=== PATIENT | female | born 1995 | race Caucasian/White ===

== ENCOUNTER 2016-09-06 04:21 | Emergency (ER) | payer OTHER ==
[2016-09-06 04:49] LABS: BILIRUBIN,URINE NEGATIVE (NEGATIVE)
[2016-09-06 04:58] LABS: HCG UR QUAL NEGATIVE; UA w/ MICROSCOPIC CHARGE YES; UR CULTURE IF IND NOT INDICATED
--- NOTE | 2016-09-06 05:18 | ED Physician Documentation ---
PD HPI ABD PAIN - Stated complaint Stated Complaint: FEMALE - Chief complaint Chief Complaint: General - History obtained from History obtained from: Patient - History of Present Illness Timing - onset: How many days ago (2) Timing - duration: Days Timing - details: Still present, Constant, Waxing and waning Pain level now: 6 Quality: Cramping Location: Suprapubic (suprapubic and bilateral pelvis) Radiation: Other (no radiation of pain) Improved by: Other (no ameliorating factors) Worsened by: Other (no exacerbating factors) Associated symptoms: No: Fever, Nausea, Vomiting Similar symptoms before: Has not had sx before Recently seen: Not recently seen - Additional information Additional information: patient complains of two days of cramping across anterior pelvis, coinciding with the onset of her period. she says it feels like her menstrual cramping but more intense then she's had previously. Patient took Pamperin without relief. Review of Systems Constitutional: denies: Fever : reports: Vaginal bleeding, Control (ICU). denies: Dysuria, Frequency , Irregular menses, Now EGA PD PAST MEDICAL HISTORY - Past Medical History Past Medical History: No - Past Surgical History Past Surgical History: No - Present Medications Home Medications: Ambulatory Orders Medication Instructions Recorded Confirmed No Known Home Medications [No 09/06/16 09/06/16 Known Home Medications] - Allergies Allergies/Adverse Reactions: Allergies Allergy/AdvReac Type Severity Reaction Status Date / Time No Known Drug Allergies Allergy Verified 09/06/16 04:28 PD ED PE NORMAL - Vitals Vital signs reviewed: Yes - General General: Alert and oriented X 3, No acute distress, Well developed/nourished - Abdomen Abdomen: Normal bowel sounds, Soft, Non distended, Other (mild tenderness across anterior pelvis, greatest in suprapubic region) Results - Vitals Vitals: Vital Signs - 24 hr 09/06/16 09/06/16 04:25 06:35 Temperature 36.4 C L Heart Rate 74 69 Respiratory 15 18 Rate Blood Pressure 115/84 H 112/74 O2 Saturation 99 99 Oxygen O2 Source Room air - Labs Labs: Laboratory Tests 09/06/16 09/06/16 04:40 05:44 WBC 6.7 RBC 4.42 Hgb 12.9 Hct 38.9 MCV 88.0 MCH 29.1 MCHC 33.1 RDW 13.0 Plt Count 221 MPV 10.2 Neut # 3.1 Lymph # 2.6 [place] # 0.8 Eos # 0.1 Baso # 0.0 Absolute Nucleated RBC 0.01 Nucleated RBCs 0.1 Urine Color LT. YELLOW Urine Clarity CLEAR Urine pH 6.0 Ur Specific [place] 1.020 Urine Protein NEGATIVE Urine Glucose (UA) NEGATIVE Urine Ketones NEGATIVE Urine Occult Blood LARGE H Urine Nitrite NEGATIVE Urine Bilirubin NEGATIVE Urine Urobilinogen 0.2 (NORMAL) Ur Leukocyte Esterase NEGATIVE Urine RBC 0-5 Urine WBC 4-5 Ur Squamous Epith Cells FEW Squamous Urine Bacteria None Seen Ur Microscopic Review INDICATED Urine Culture Comments NOT INDICATED Urine HCG, Qual NEGATIVE - Rads (name of study) pelvic/TV US Radiology: Prelim report reviewed, See rad report PD MEDICAL DECISION MAKING - ED course Complexity details: reviewed results, re-evaluated patient, considered differential, d/w patient Departure - Departure Disposition: 01 Home, Self Care Clinical Impression: Pelvic pain Condition: Good Instructions: ED Pelvic Pain [facility] Discharge Date/Time: 09/06/16 08:06
[2016-09-06] MEDS ORDERED: IBUPROFEN 600 MG TABLET PO ONE (05:46)
[2016-09-06] MEDS ORDERED: IBUPROFEN 600 MG TABLET PO STA (05:49)
[2016-09-06 05:55] LABS: BASOPHILS % (AUTO) 0.6 %; EOSINOPHILS # (AUTO) 0.1 10^3/uL (0.0-0.7); EOSINOPHILS % (AUTO) 2.1 %; HCT - HEMATOCRIT 38.9 % (37.0-47.0); HGB - HEMOGLOBIN 12.9 g/dL (12.0-16.0); LYMPHOCYTES # (AUTO) 2.6 10^3/uL (1.5-3.5); LYMPHOCYTES % (AUTO) 39.3 %; MEAN CORPUSCULAR HEMOGLOBIN 29.1 pg (27.0-31.0); MEAN CORPUSCULAR HGB CONC 33.1 g/dL (32.0-36.0); MEAN PLATELET VOLUME 10.2 fL (7.9-10.8); MONOCYTES # (AUTO) 0.8 10^3/uL (0.0-1.0); MONOCYTES % (AUTO) 11.3 %; NEUTROPHILS # (AUTO) 3.1 10^3/uL (1.5-6.6); NEUTROPHILS % (AUTO) 46.7 %; NUCLEATED RED BLOOD CELLS AUTO 0.1 /100WBC; RED BLOOD COUNT 4.42 10^6/uL (4.20-5.40); UNCORRECTED WHITE BLOOD COUNT 6.7 x10^3/uL; WHITE BLOOD COUNT 6.7 x10^3/uL (4.8-10.8)
[2016-09-06 06:36] VITALS: BP 112/74
--- NOTE | 2016-09-06 07:44 | Ultrasound Preliminary Report ---
Exam: US Pel Non OB w/TV + Dop IMPRESSION: Normal sonographic appearance of the pelvis. [facility] SITE ID: [id number]
--- NOTE | 2016-09-06 07:46 | Ultrasound Report ---
EXAM: PELVIC ULTRASOUND EXAM DATE: 09/06/2016 07:21 AM. CLINICAL HISTORY: Pelvic pain and tenderness. COMPARISON: None. TECHNIQUE: Realtime transabdominal pelvic scan performed to identify the uterus and adnexa and as an overview of other pelvic structures, followed by transvaginal scan to provide greater detail of the u terus and adnexa, with static image documentation. FINDINGS: Uterus: Uterus is normal in position and normal in configuration. Uterus measures 7.2 x 5.0 x 3.3 cm . No evident uterine masses. Endometrium: Satisfactory appearance of the IUD. Endometrium measures 2.1 mm. No suspicious thickenin g or vascularity. Cervix: No suspicious lesion. Right Ovary: Normal in appearance measuring 3.4 x 2.1 x 2.1 cm. Normal blood flow. Left Ovary: Normal in appearance measuring 3.0 x 1.8 x 1.2 cm. Normal blood flow. Fluid: No signficant free fluid. Other: No other significant findings. IMPRESSION: Normal sonographic appearance of the pelvis. [facility] Referring Provider Line: [phone] SITE ID: [id number]
== END 2016-09-06 08:06 | disposition home or self-care (01) ==
LOC: ED 04:21
DX: R10.2 Pelvic and perineal pain (principal)
CPT/HCPCS: 36415; 76830; 76856; 81001; 81025; 85025; 93975; 99283; A9270; 81003; 87086

== ENCOUNTER 2017-11-11 17:57 | Emergency (ER) | payer OTHER ==
--- NOTE | 2017-11-11 19:23 | ED Physician Documentation ---
PD HPI SKIN - Stated complaint Stated Complaint: BUMP IN L EAR - Chief complaint Chief Complaint: Wound - History obtained from History obtained from: Patient - History of Present Illness Timing - onset: Other (5 days a little painful abscess inside of the left ear. She has not had these before and she has no health issues.) Review of Systems Constitutional: reports: Reviewed and negative Ears: denies: Loss of hearing, Ear pain, Drainage/discharge Nose: reports: Reviewed and negative PD PAST MEDICAL HISTORY - Past Surgical History Past Surgical History: Yes - Present Medications Home Medications: Ambulatory Orders Medication Instructions Recorded Confirmed Cephalexin [Keflex] 500 mg PO QID #40 capsule 11/11/17 - Allergies Allergies/Adverse Reactions: Allergies Allergy/AdvReac Type Severity Reaction Status Date / Time No Known Drug Allergies Allergy Verified 11/11/17 18:05 - Social History Does the pt smoke?: No Smoking Status: Never smoker Does the pt drink ETOH?: No Does the pt have substance abuse?: No - Immunizations Immunizations are current?: Yes PD ED PE NORMAL - Vitals Vital signs reviewed: Yes - General General: Alert and oriented X 3, No acute distress - HEENT HEENT: Other - Neck Neck: Supple, no meningeal sign, No bony TTP (There is a less than 1 cm pointed abscess just posterior to the ear canal in the left ear.) - Neuro Neuro: Alert and oriented X 3, Normal speech Results - Vitals Vitals: Vital Signs - 24 hr 11/11/17 18:04 Temperature 36.7 C Heart Rate 74 Respiratory 16 Rate Blood Pressure 123/81 H O2 Saturation 100 Oxygen O2 Source Room air Procedures - Abscess I&D (location) L ear Preparation: Betadine, Lidocaine 1% (auricular block) Incision: Incised with scalpel, Purulent drainage (with sebaceous material), Loculations broken, Culture obtained Other: Pt tolerated well, Antibiotic prescribed PD MEDICAL DECISION MAKING - Sepsis Event Vital Signs: Vital Signs - 24 hr 11/11/17 18:04 Temperature 36.7 C Heart Rate 74 Respiratory 16 Rate Blood Pressure 123/81 H O2 Saturation 100 Oxygen O2 Source Room air Departure - Departure Disposition: 01 Home, Self Care Clinical Impression: Sebaceous cyst of ear Condition: Good Record reviewed to determine appropriate education?: Yes Instructions: ED Abscess IandD Prescriptions: Cephalexin [Keflex] 500 mg PO QID #40 capsule Comments: We are performing a wound culture, the results should be done in 48-72 hours. If antibiotic change is necessary we will call you. Return if worse in the meantime, especially if you develop increased pain, fevers, cannot keep down the medication. Otherwise follow-up with your physician in approximately 2-3 days.
[2017-11-11] MEDS ORDERED: cephALEXin 250 MG CAPSULE PO STA (19:27)
[2017-11-11 19:41] VITALS: BP 119/72
== END 2017-11-11 19:39 | disposition home or self-care (01) ==
LOC: ED 17:57
DX: L72.3 Sebaceous cyst (principal)
CPT/HCPCS: 10060; 87070; 87181; 87205; 99283; A9270

== ENCOUNTER 2018-11-17 14:38 | Emergency (ER) | payer OTHER ==
--- NOTE | 2018-11-17 15:00 | ED Physician Documentation ---
PD HPI FEMALE - Stated complaint Stated Complaint: FEMALE - Chief complaint Chief Complaint: UTI - History obtained from History obtained from: Patient - History of Present Illness Timing - onset: How many days ago (5-6) Timing - duration: Days (5-6) Timing - details: Gradual onset, Still present (worse the past 3 days) Associated symptoms: Vaginal pain (around labia), Dysuria. No: Vaginal discharge, Genital sore/lesion Contributing factors: IUD, Sexually active (but her is away the past 2 months). No: , Exposed to STD Review of Systems Constitutional: denies: Fever, Chills, Myalgias Throat: denies: Sore throat GI: denies: Abdominal Pain : reports: Dysuria, Frequency. denies: Discharge Skin: denies: Rash, Lesions Musculoskeletal: reports: Back pain PD PAST MEDICAL HISTORY - Past Medical History Cardiovascular: None Respiratory: None Neuro: None Endocrine/Autoimmune: None - Past Surgical History Past Surgical History: Yes - Present Medications Home Medications: Ambulatory Orders Medication Instructions Recorded Confirmed Cephalexin [Keflex] 500 mg PO QID #40 capsule 11/11/17 Clotrimazole/Betamethasone Dip 15 gm TP BID #15 cream..g. 11/17/18 [Lotrisone Cream] Fluconazole [Diflucan] 150 mg PO ONCE #2 tablet 11/17/18 Metronidazole [Flagyl] 500 mg PO BID #14 tablet 11/17/18 Naproxen 375 mg PO BID #20 tablet 11/17/18 - Allergies Allergies/Adverse Reactions: Allergies Allergy/AdvReac Type Severity Reaction Status Date / Time No Known Drug Allergies Allergy Verified 11/11/17 18:05 - Social History Does the pt smoke?: No Smoking Status: Never smoker Does the pt drink ETOH?: No Does the pt have substance abuse?: No - Immunizations Immunizations are current?: Yes PD ED PE NORMAL - Vitals Vital signs reviewed: Yes - General General: Alert and oriented X 3, No acute distress, Well developed/nourished - HEENT HEENT: Pharynx benign - Neck Neck: Supple, no meningeal sign, No adenopathy - Cardiac Cardiac: RRR, No murmur - Respiratory Respiratory: Clear bilaterally - Abdomen Abdomen: Soft, Non tender - Female Female : Screen Printing Paster present, Other (redness without focal swelling in crease of labia and on inner labial mcintosh. The vault has clear to shaikh colored, somewhat mucousy discharge. IUD strings noted. Some malodor c/w BV.) - Back Back: No CVA TTP - Derm Derm: Normal color, Warm and dry Results - Vitals Vitals: Vital Signs - 24 hr 11/17/18 11/17/18 11/17/18 14:43 15:11 16:39 Temperature 37.2 C 37.3 C Heart Rate 86 86 67 Respiratory 16 16 18 Rate Blood Pressure 131/80 H 131/80 H 118/71 O2 Saturation 100 100 98 Oxygen O2 Source Room air - Labs Labs: Microbiology 11/17/18 16:06 Wet Prep - Final Vaginal Laboratory Tests 11/17/18 11/17/18 11/17/18 16:06 16:06 16:06 Urine Color DARK YELLOW Urine Clarity HAZY Urine pH 6.0 Ur Specific [place] 1.020 1.020 Urine Protein TRACE Urine Glucose (UA) NEGATIVE Urine Ketones 15 H Urine Occult Blood TRACE-INTA Urine Nitrite NEGATIVE Urine Bilirubin SMALL H Urine Urobilinogen 0.2 (NORMAL) Ur Leukocyte Esterase TRACE H Urine RBC 0-5 Urine WBC 4-5 Ur Squamous Epith Cells MANY Squamous H Urine Bacteria Many H Urine Mucus Few Strands Ur Microscopic Review INDICATED Urine Culture Comments NOT INDICATED Urine HCG, Qual NEGATIVE Chlam trachomat DNA PCR NEGATIVE N.gonorrhoeae DNA (PCR) NEGATIVE T. vaginalis (PCR) NEGATIVE Departure - Departure Disposition: 01 Home, Self Care Clinical Impression: Vaginitis Qualifiers: Chronicity: acute Qualified Code(s): N76.0 - Acute vaginitis Condition: Stable Record reviewed to determine appropriate education?: Yes Instructions: ED Vaginosis Bacterial, ED Vaginal Infec Fungal Xin Follow-Up: Feliciano Arredondo ARNP [Primary Care Provider] - Prescriptions: Clotrimazole/Betamethasone Dip [Lotrisone Cream] 15 gm TP BID #15 cream..g. Fluconazole [Diflucan] 150 mg PO ONCE #2 tablet Metronidazole [Flagyl] 500 mg PO BID #14 tablet Naproxen 375 mg PO BID #20 tablet Comments: Your exam does look likely to be a vaginitis with some mucus and redness in the vaginal vault and at the labia. This may be back serial or may have some element of yeast. Diflucan oral antifungal tablet. Metronidazole oral antibiotic as directed. Naproxen anti-inflammatory. He can also use the Chlortrimazole cream at the labial folds and inner labia where its irritated twice daily for the next several days or so. Recheck if not improving well over the next few days. We did do a culture to look for other types of bacterial infections and will call you if it is positive in about 3 days. Discharge Date/Time: 11/17/18 16:40
[2018-11-17 16:21] LABS: GLUCOSE, URINE (UA) NEGATIVE (NEGATIVE); KETONES,URINE (UA) 15 mg/dL (NEGATIVE); LEUKOCYTE ESTERASE, URINE TRACE (NEGATIVE); NITRITE,URINE NEGATIVE (NEGATIVE); OCCULT BLOOD,URINE TRACE-INTA (NEGATIVE); PROTEIN,URINE TRACE mg/dL (NEGATIVE); UROBILINOGEN,URINE 0.2 (NORMAL) E.U./dL (NORMAL)
[2018-11-17 16:34] LABS: BILIRUBIN,URINE SMALL (NEGATIVE); ICTOTEST,URINE POSITIVE
[2018-11-17 16:35] LABS: CLARITY,URINE HAZY (CLEAR); HCG UR QUAL NEGATIVE
[2018-11-17 16:36] LABS: BACTERIA,URINE Many /HPF (None Seen); MUCUS,URINE Few Strands; RBC,URINE 0-5 /HPF (0-5); SQUAMOUS EPITHELIAL CELL,UR MANY Squamous (<= Few)
[2018-11-17 16:41] VITALS: BP 118/71
[2018-11-17 22:30] LABS: TRICHOMONAS VAGINALIS DNA NEGATIVE (NEGATIVE)
== END 2018-11-17 16:40 | disposition home or self-care (01) ==
LOC: ED 14:38
DX: N76.0 Acute vaginitis (principal); Z97.5 Presence of (intrauterine) contraceptive device
CPT/HCPCS: 81001; 81003; 81025; 87086; 87210; 87491; 87591; 87661; 99283; 99284

== ENCOUNTER 2018-12-22 19:56 | Emergency (ER) | payer OTHER ==
[2018-12-22 20:26] LABS: BILIRUBIN,URINE NEGATIVE (NEGATIVE); GLUCOSE, URINE (UA) NEGATIVE (NEGATIVE); KETONES,URINE (UA) TRACE mg/dL (NEGATIVE); LEUKOCYTE ESTERASE, URINE NEGATIVE (NEGATIVE); NITRITE,URINE NEGATIVE (NEGATIVE); OCCULT BLOOD,URINE NEGATIVE (NEGATIVE); PH,URINE 6.5 PH (5.0-7.5); PROTEIN,URINE NEGATIVE (NEGATIVE); UROBILINOGEN,URINE 0.2 (NORMAL) E.U./dL (NORMAL)
[2018-12-22 20:31] LABS: CLARITY,URINE CLEAR (CLEAR); HCG UR QUAL NEGATIVE
--- NOTE | 2018-12-22 21:05 | ED Physician Documentation ---
PD HPI ABD PAIN - Stated complaint Stated Complaint: FEMALE - Chief complaint Chief Complaint: Abd Pain - History obtained from History obtained from: Patient - History of Present Illness Timing - onset: Other (23-year-old woman with an almost IUD in place presents with pelvic cramping and discharge this been going on on and off for 2 months. The first physician she saw said she had normal exam and place her on Aquaphor. Subsequent to that she was tested and positive for BV and negative for STDs. She got better briefly on Flagyl but her symptoms recurred. Now she is on topical antibiotics without relief. She has slight vaginal bleeding. She has not been sexually active in about 4 months.) Review of Systems Constitutional: denies: Fever, Chills Respiratory: denies: Dyspnea, Cough GI: reports: Abdominal Pain. 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 11/17/18 [Lotrisone Cream] Fluconazole [Diflucan] 150 mg PO ONCE #2 tablet 11/17/18 Metronidazole [Flagyl] 500 mg PO BID #14 tablet 11/17/18 Naproxen 375 mg PO BID #20 tablet 11/17/18 - Allergies Allergies/Adverse Reactions: Allergies Allergy/AdvReac Type Severity Reaction Status Date / Time No Known Drug Allergies Allergy Verified 12/22/18 20:04 - Social History Does the pt smoke?: No Smoking Status: Never smoker Does the pt drink ETOH?: No Does the pt have substance abuse?: No - Immunizations Immunizations are current?: Yes - POLST Patient has POLST: No PD ED PE NORMAL - Vitals Vital signs reviewed: Yes - General General: Alert and oriented X 3, No acute distress - Abdomen Abdomen: Soft, Non tender - Female Female : Flattening Press Operator present (Winnie PAIGE), Other (Fair amount of mucus on speculum exam, no tenderness. Her IUD was removed per her request.) - Neuro Neuro: Alert and oriented X 3, Normal speech - Psych Psych: Normal mood, Normal affect Results - Vitals Vitals: Vital Signs - 24 hr 12/22/18 20:01 Temperature 36.7 C Heart Rate 77 Respiratory 19 Rate Blood Pressure 133/87 H O2 Saturation 100 Oxygen O2 Source Room air - Labs Labs: Microbiology 12/22/18 21:40 Wet Prep - Final Genital - Vaginal Laboratory Tests 12/22/18 20:17 Urine Color YELLOW Urine Clarity CLEAR Urine pH 6.5 Ur Specific [place] 1.020 Urine Protein NEGATIVE Urine Glucose (UA) NEGATIVE Urine Ketones TRACE Urine Occult Blood NEGATIVE Urine Nitrite NEGATIVE Urine Bilirubin NEGATIVE Urine Urobilinogen 0.2 (NORMAL) Ur Leukocyte Esterase NEGATIVE Ur Microscopic Review NOT INDICATED Urine Culture Comments NOT INDICATED Urine HCG, Qual NEGATIVE PD MEDICAL DECISION MAKING - ED course ED course: 23-year-old woman with ongoing vaginal complaints. She felt like it was her IUD and per her request it was removed. Now her swabs are negative, and subsequent to the removal of her IUD she was already feeling better. Departure - Departure Disposition: 01 Home, Self Care Clinical Impression: Pelvic pain Vaginitis Qualifiers: Chronicity: acute Qualified Code(s): N76.0 - Acute vaginitis Condition: Good Record reviewed to determine appropriate education?: Yes Instructions: ED Pelvic Pain [facility] Comments: Follow-up with your primary care physician if not improved, return for new or worsening symptoms. You will need alternative form of control obviously if you are sexually active again.
[2018-12-22 22:21] VITALS: BP 105/73
== END 2018-12-22 22:21 | disposition home or self-care (01) ==
LOC: ED 19:56
DX: R10.2 Pelvic and perineal pain (principal); N76.0 Acute vaginitis
CPT/HCPCS: 81001; 81003; 81025; 87086; 87210; 99283; 99284

== ENCOUNTER 2018-12-25 20:33 | Emergency (ER) | payer OTHER ==
[2018-12-25] MEDS ORDERED: HYDROmorphone 1 MG/ML CARPUJECT IM STA (20:55)
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
[2018-12-25] MEDS ORDERED: HYDROcod/ACET 5/325 Prepack 4 PO STA (21:41)
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
[2018-12-25] MEDS ORDERED: TETANUS/DIPHTHERIA/PERTUSSIS 0.5 ML SYRINGE IM ONE (21:51)
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
[2018-12-25 22:20] VITALS: BP 126/86
== END 2018-12-25 22:22 | disposition home or self-care (01) ==
LOC: ED 20:33
DX: S43.102A Unspecified dislocation of left acromioclavicular joint, initial encounter (principal); S30.810A Abrasion of lower back and pelvis, initial encounter; V18.0XXA Pedal cycle driver injured in noncollision transport accident in nontraffic accident, initial encounter; Y93.55 Activity, bike riding; Z23 Encounter for immunization
CPT/HCPCS: 72040; 73030; 90471; 90715; 96372; 99284; J1170

== ENCOUNTER 2019-05-17 09:21 | Emergency (ER) | payer OTHER ==
--- NOTE | 2019-05-17 11:41 | ED Physician Documentation ---
PD HPI CHEST PAIN - Stated complaint Stated Complaint: LT SIDE PX - Chief complaint Chief Complaint: Resp - History obtained from History obtained from: Patient - History of Present Illness Timing - onset: Last night (Healthy 23-year-old woman who since last night has had a sharp pain in the left lower ribs laterally when she takes deep breath or coughs. She has a dry cough but had a small amount of hemoptysis this morning. She was short of breath last night. She is not on control. She has not had recent travel, leg pain or leg swelling. No history of DVT or PE.) Review of Systems Constitutional: denies: Fever, Chills, Fatigue Nose: denies: Rhinorrhea / runny nose, Congestion Throat: denies: Sore throat Cardiac: reports: Chest pain / pressure. denies: Palpitations Respiratory: reports: Dyspnea, Cough, Hemoptysis. denies: Wheezing PD PAST MEDICAL HISTORY - Past Medical History Past Medical History: No Cardiovascular: None Respiratory: None Neuro: None Endocrine/Autoimmune: None GI: None FLIGHT MANAGER: None : None HEENT: None Psych: None Musculoskeletal: None Derm: None - Past Surgical History Past Surgical History: Yes - Present Medications Home Medications: Ambulatory Orders Medication Instructions Recorded Confirmed Clotrimazole/Betamethasone Dip 15 gm TP BID #15 cream..g. 11/17/18 [Lotrisone Cream] Hydrocodone/Acetaminophen 1 - 2 each PO Q6H PRN #14 tablet 12/25/18 [Hydrocodon-Acetaminophen 5-325] Tretinoin/Emollient Base 12/25/18 [Tretinoin 0.05% Emollient Crm] - Allergies Allergies/Adverse Reactions: Allergies Allergy/AdvReac Type Severity Reaction Status Date / Time No Known Drug Allergies Allergy Verified 05/17/19 09:34 - Social History Does the pt smoke?: No Smoking Status: Never smoker Does the pt drink ETOH?: No Does the pt have substance abuse?: No - Immunizations Immunizations are current?: No Immunizations: TDAP current <10years - POLST Patient has POLST: No PD ED PE NORMAL - Vitals Vital signs reviewed: Yes - General General: Alert and oriented X 3, No acute distress - HEENT HEENT: PERRL, EOMI - Neck Neck: Supple, no meningeal sign, No bony TTP - Cardiac Cardiac: RRR, No murmur - Respiratory Respiratory: No respiratory distress, Clear bilaterally - Abdomen Abdomen: Non tender - Extremities Extremities: No edema, No calf tenderness / cord - Neuro Neuro: Alert and oriented X 3, Normal speech Results - Vitals Vitals: Vital Signs - 24 hr 05/17/19 05/17/19 09:31 11:45 Temperature 36.9 C 37.1 C Heart Rate 89 79 Respiratory 14 18 Rate Blood Pressure 160/91 H 121/81 H O2 Saturation 100 96 Oxygen O2 Source Room air - Labs Labs: Laboratory Tests 05/17/19 05/17/19 05/17/19 11:53 11:53 11:53 WBC 7.4 RBC 4.63 Hgb 13.3 Hct 41.5 MCV 89.6 MCH 28.7 MCHC 32.0 RDW 11.9 L Plt Count 278 MPV 11.2 H Neut # (Auto) 4.9 Lymph # (Auto) 1.9 Grayson # (Auto) 0.6 Eos # (Auto) 0.0 Baso # (Auto) 0.1 Absolute Nucleated RBC 0.00 Nucleated RBC % 0.0 D-Dimer 216.4 Sodium 138 Potassium 3.6 Chloride 102 Carbon Dioxide 25 Anion Gap 11.0 BUN 10 Creatinine 0.5 Estimated GFR (MDRD) 150 Glucose 100 Calcium 9.3 Total Bilirubin 0.7 AST 19 ALT 21 Alkaline Phosphatase 60 Total Protein 7.4 Albumin 4.1 Globulin 3.3 Albumin/Globulin Ratio 1.2 Lipase 23 - Rads (name of study) CXR Radiology: EMP read contemporaneously (neg) PD MEDICAL DECISION MAKING - ED course ED course: 23-year-old woman with left-sided chest pain worse with deep breathing and coughing. Examination is normal. PE is considered given the hemoptysis, and therefore a d-dimer was done. Otherwise it just seems like a chest wall strain from cough Departure - Departure Disposition: Home, Self Care Clinical Impression: Intercostal muscle pain, Cough Condition: Good Record reviewed to determine appropriate education?: Yes Instructions: ED Strain Chest Wall Comments: Return for new or worsening symptoms. Follow-up with your doctor in a week if not better for recheck. Ibuprofen as needed for pain.
[2019-05-17 11:45] VITALS: BP 121/81
--- NOTE | 2019-05-17 11:49 | XRAY Report ---
Reason: cough Procedure Date: 05/17/2019 Accession Number: [id number] / [id number] Procedure: XR - Chest 2 View X-Ray CPT Code: 30099 Final Report FULL RESULT: EXAM: CHEST RADIOGRAPHY EXAM DATE: 05/17/2019 11:06 AM. CLINICAL HISTORY: Cough. COMPARISON: SHOULDER 3 VIEW LT 12/25/2018 9:00 PM. TECHNIQUE: 2 views. FINDINGS: Lungs/Pleura: No focal opacities evident. No pleural effusion. No pneumothorax. Normal volumes. Mediastinum: Heart and mediastinal contours are unremarkable. Other: Left AC joint separation as on 12/25/2018. IMPRESSION: Clear lungs. No acute findings. RADIA
[2019-05-17 12:01] LABS: BASOPHILS # (AUTO) 0.1 10^3/uL (0.0-0.1); BASOPHILS % (AUTO) 0.7 %; EOSINOPHILS % (AUTO) 0.1 %; HGB - HEMOGLOBIN 13.3 g/dL (12.0-16.0); LYMPHOCYTES # (AUTO) 1.9 10^3/uL (1.5-3.5); LYMPHOCYTES % (AUTO) 25.3 %; MEAN CORPUSCULAR HEMOGLOBIN 28.7 pg (27.0-31.0); MEAN CORPUSCULAR VOLUME 89.6 fL (81.0-99.0); MEAN PLATELET VOLUME 11.2 fL (7.9-10.8); MONOCYTES # (AUTO) 0.6 10^3/uL (0.0-1.0); MONOCYTES % (AUTO) 7.5 %; NEUTROPHILS # (AUTO) 4.9 10^3/uL (1.5-6.6); NEUTROPHILS % (AUTO) 66.1 %; PLT - PLATELET COUNT 278 10^3/uL (130-450); RED BLOOD COUNT 4.63 10^6/uL (4.20-5.40); RED CELL DISTRIBUTION WIDTH 11.9 % (12.0-15.0); WHITE BLOOD COUNT 7.4 x10^3/uL (4.8-10.8)
[2019-05-17 12:11] LABS: ALBUMIN 4.1 g/dL (3.2-5.5); ALBUMIN/GLOBULIN RATIO 1.2 (1.0-2.2); BILIRUBIN,TOTAL 0.7 mg/dL (0.2-1.0); CALCIUM 9.3 mg/dL (8.5-10.3); CREATININE 0.5 mg/dL (0.4-1.0); TOTAL PROTEIN 7.4 g/dL (6.7-8.2)
== END 2019-05-17 12:21 | disposition home or self-care (01) ==
LOC: ED 09:21
DX: R07.89 Other chest pain (principal); M79.18 Myalgia, other site; R05 Cough
CPT/HCPCS: 36415; 71046; 80053; 83690; 85025; 85379; 99283; 99284

== ENCOUNTER 2019-06-25 10:35 | Emergency (ER) | payer OTHER ==
[2019-06-25 11:08] VITALS: BP 119/68
--- NOTE | 2019-06-25 12:09 | ED Physician Documentation ---
PD HPI UPPER EXT INJURY - Stated complaint Stated Complaint: L HAND LAC - Chief complaint Chief Complaint: Laceration - History obtained from History obtained from: Patient - History of Present Illness Location: Left, Hand Type of injury: Laceration (She is using an [employer] knife and accidentally cut onto the dorsum of the left hand proximal to the base of the thumb. It bled m ildly. There is no foreign body. It does open wider with range of motion of the thumb. No numbness or tingling.) Where injury occurred: Home Timing - onset: Today Timing - details: Abrupt onset Associated symptoms: No: Weakness, Numbness Review of Systems Neurologic: denies: Focal weakness, Numbness PD PAST MEDICAL HISTORY - Past Medical History Cardiovascular: None Respiratory: None Neuro: None Endocrine/Autoimmune: None GI: None DIRECTOR OF MANAGED CARE: None : None HEENT: None Psych: None Musculoskeletal: None Derm: None - Past Surgical History Past Surgical History: Yes - Present Medications Home Medications: Ambulatory Orders Medication Instructions Recorded Confirmed Clotrimazole/Betamethasone Dip 15 gm TP BID #15 cream..g. 11/17/18 [Lotrisone Cream] Hydrocodone/Acetaminophen 1 - 2 each PO Q6H PRN #14 tablet 12/25/18 [Hydrocodon-Acetaminophen 5-325] Tretinoin/Emollient Base 12/25/18 [Tretinoin 0.05% Emollient Crm] - Allergies Allergies/Adverse Reactions: Allergies Allergy/AdvReac Type Severity Reaction Status Date / Time No Known Drug Allergies Allergy Verified 06/25/19 11:08 - Social History Does the pt smoke?: No Smoking Status: Never smoker Does the pt drink ETOH?: No Does the pt have substance abuse?: No - Immunizations Immunizations are current?: No Immunizations: TDAP current <10years - POLST Patient has POLST: No PD ED PE NORMAL - Vitals Vital signs reviewed: Yes - General General: Alert and oriented X 3, No acute distress, Well developed/nourished - Derm Derm: Normal color, Warm and dry - Extremities Extremities: Other (Dorsum of the hand near the base of the left thumb proximal to that shows a 1-1/2 cm laceration which goes to the fatty layer without any foreign body or deep structures involved. It opens more widely with range of motion of the thumb. There are no foreign bodies noted.) Results - Vitals Vitals: Vital Signs - 24 hr 06/25/19 11:06 Temperature 36.1 C L Heart Rate 85 Respiratory 16 Rate Blood Pressure 119/68 O2 Saturation 100 Oxygen O2 Source Room air Procedures - Laceration (location) left hand Length in cm: 1.5 Wound type: Linear, Into subcut fat, Clean Neurovascular status: Sensory intact, Motor intact, Vascular intact Tendon involvement: Tendon intact Anesthesia: Lidocaine 1% with epi Wound Preparation: Wound explored, To the base. No: FB identified Skin layer closure: Nylon, Interrupted, Size #-0 - enter number (5), Sutures - enter # (4) Other: Patient tolerated well, Neurovascular intact, Tetanus UTD Complexity: Simple Departure - Departure Disposition: 01 Home, Self Care Clinical Impression: Laceration of left hand Qualifiers: Encounter type: initial encounter Foreign body presence: without foreign body Qualified Code(s): S61.412A - Laceration without foreign body of left hand, initial encounter Condition: Stable Record reviewed to determine appropriate education?: Yes Instructions: ED Laceration Hand Follow-Up: Meena Flores ARNP [Primary Care Provider] - Comments: It is okay to wash and shower. Clean off the wound twice a day with soap and water, or peroxide and water. Apply some antibiotic ointment to it to keep it moist. Also to watch for signs of infection such as purulence, redness or increasing pain. Return to your primary care or the ER at the specified time for suture removal. Suture removal 7 or 8 days.
== END 2019-06-25 12:48 | disposition home or self-care (01) ==
LOC: ED 10:35
DX: S61.412A Laceration without foreign body of left hand, initial encounter (principal); W26.0XXA Contact with knife, initial encounter
CPT/HCPCS: 12001; 99281; 99282

== ENCOUNTER 2020-10-07 08:00 | Outpatient (CLI) | payer OTHER ==
[2020-10-07 22:34] LABS: BACTERIAL VAGINOSIS DNA NEGATIVE (NEGATIVE); CANDIDA GLABRATA DNA NEGATIVE (NEGATIVE); CANDIDA GROUP DNA NEGATIVE (NEGATIVE); CANDIDA KRUSEI DNA NEGATIVE (NEGATIVE); TRICHOMONAS VAGINALIS DNA NEGATIVE (NEGATIVE)
[2020-10-07 23:23] LABS: CHLAMYDIA TRACHOMATIS DNA NEGATIVE (NEGATIVE); NEISSERIA GONORRHOEAE DNA NEGATIVE (NEGATIVE); TRICHOMONAS VAGINALIS DNA NEGATIVE (NEGATIVE)
== END 2020-10-07 23:59 | disposition home or self-care (01) ==
LOC: LAB.N 08:00
PROVIDERS: ATTEND Family Medicine
DX: N76.0 Acute vaginitis (principal); R30.0 Dysuria
CPT/HCPCS: 87086; 87181; 87491; 87591; 87661; 87801

== ENCOUNTER 2020-11-08 08:00 | Outpatient (CLI) | payer OTHER | END 2020-11-08 23:59 | disposition home or self-care (01) | LOC: LAB.N 08:00 | PROVIDERS: ATTEND Physician Assistant Medical | DX: J06.9 Acute upper respiratory infection, unspecified (principal); Z20.822 Contact with and (suspected) exposure to COVID-19 ==

== ENCOUNTER 2021-03-14 08:00 | Outpatient (CLI) | payer OTHER | END 2021-03-14 23:59 | LOC: LAB.N 08:00 | PROVIDERS: ATTEND Family Medicine | DX: N39.0 Urinary tract infection, site not specified (principal) | CPT/HCPCS: 87086; 87181 ==

== ENCOUNTER 2021-04-15 09:05 | Outpatient (CLI) | payer OTHER ==
[2021-04-16 00:45] LABS: CHLAMYDIA TRACHOMATIS DNA NEGATIVE (NEGATIVE); NEISSERIA GONORRHOEAE DNA NEGATIVE (NEGATIVE); TRICHOMONAS VAGINALIS DNA NEGATIVE (NEGATIVE)
[2021-04-16 01:42] LABS: BACTERIAL VAGINOSIS DNA NEGATIVE (NEGATIVE); CANDIDA GLABRATA DNA NEGATIVE (NEGATIVE); CANDIDA GROUP DNA POSITIVE (NEGATIVE); CANDIDA KRUSEI DNA NEGATIVE (NEGATIVE); TRICHOMONAS VAGINALIS DNA NEGATIVE (NEGATIVE)
== END 2021-04-15 23:59 | disposition home or self-care (01) ==
LOC: LAB.N 09:05
PROVIDERS: ATTEND Family Medicine
DX: N89.8 Other specified noninflammatory disorders of vagina (principal)
CPT/HCPCS: 87086; 87491; 87591; 87661; 87801

== ENCOUNTER 2021-07-21 08:00 | Outpatient (CLI) | payer OTHER ==
[2021-07-21 22:50] LABS: BACTERIAL VAGINOSIS DNA NEGATIVE (NEGATIVE); CANDIDA GLABRATA DNA NEGATIVE (NEGATIVE); CANDIDA GROUP DNA POSITIVE (NEGATIVE); CANDIDA KRUSEI DNA NEGATIVE (NEGATIVE); TRICHOMONAS VAGINALIS DNA NEGATIVE (NEGATIVE)
== END 2021-07-21 23:59 ==
LOC: LAB 08:00
PROVIDERS: ATTEND Family Medicine
DX: N76.0 Acute vaginitis (principal)
CPT/HCPCS: 87661; 87801

== ENCOUNTER 2021-08-14 08:00 | Outpatient (CLI) | payer OTHER ==
[2021-08-14 23:03] LABS: BACTERIAL VAGINOSIS DNA NEGATIVE (NEGATIVE); CANDIDA GLABRATA DNA NEGATIVE (NEGATIVE); CANDIDA GROUP DNA POSITIVE (NEGATIVE); CANDIDA KRUSEI DNA NEGATIVE (NEGATIVE); TRICHOMONAS VAGINALIS DNA NEGATIVE (NEGATIVE)
== END 2021-08-14 23:59 | disposition home or self-care (01) ==
LOC: LAB 08:00
PROVIDERS: ATTEND Physician Assistant Medical
DX: N76.0 Acute vaginitis (principal)
CPT/HCPCS: 81514